=== PATIENT | female | born 1985 | race African-American/Black ===

== ENCOUNTER 2016-11-28 19:43 | Emergency (ER) | payer OTHER | END 2016-11-28 22:00 | disposition home or self-care (01) | LOC: FER 19:43 | DX: S01.531A Puncture wound without foreign body of lip, initial encounter (principal); L08.9 Local infection of the skin and subcutaneous tissue, unspecified; Z23 Encounter for immunization; F17.210 Nicotine dependence, cigarettes, uncomplicated; W26.8XXA Contact with other sharp object(s), not elsewhere classified, initial encounter; Y92.89 Other specified places as the place of occurrence of the external cause | CPT/HCPCS: 90471; 90715 ==